=== PATIENT | female | born 1960 | race Caucasian/White ===

== ENCOUNTER 2019-12-28 10:48 | Day surgery (SDC) | payer BC, SELFPAY ==
[2019-12-25 12:20] VITALS: BMI 31.6
[2019-12-28] VITALS (9 sets, daily range): BP systolic 92–121; BP diastolic 55–77; PULSE 64–86; RESP 12–25; TEMP 35.9–36.6; O2SAT 95–98; BMI 30.4
--- NOTE | 2019-12-28 | PATH_ITS ---
[facility] Accession Number: [id number] . 01 Material submitted: . cervix - CERVICAL POLYP . 02 Diagnosis: Cervical Polyp, Excision: Consistent with endocervical polyp. No evidence of neoplasm. [facility] 01/01/2020 1046 Local . 02 Electronically signed: . Gui Pittman MD, PhD, Pathologist NPI- [id number] . 01 Gross description: . The specimen is received in formalin, labeled cervical polyp, and consists of a 3.0 x 1.4 x 1.0 cm, rodriguez-pink, smooth portion of cervix. the margin is inked blue. The specimen is serially sectioned and entirely submitted in cassettes A1-A4. ([id number]) /[facility] 12/29/2019 1738 Local . 02 Pathologist provided ICD-10: N84.1 . 02 CPT . 520989 Performed at: 01 [facility] [address] [facility], [place], [place] [id number] MD Sourav Seaman MD Phone: [phone] Performed at: 02 [facility] [place] [address] [place], [place] [id number] MD Nisha Castellanos MD Phone: [phone]
[2019-12-28] MEDS: LACTATED RINGERS 1,000 ML 100 ML IV (12:14)
--- NOTE | 2019-12-28 13:28 | PM.PREOP ---
Pre-operative Note COVID-19 COVID-19 status: Negative Result date/Date tested (Pos, Neg/Pending): 12/26/19 Interval Note History & Physical reviewed/Exam performed by Physician: Yes Changes to H&P: No
--- NOTE | 2019-12-28 13:33 | PM.GYNHP.1 ---
History of Present Illness History of Present Illness Reason for admission: other (Very large cervical polyp ) Narrative: Deep [place] is a 59 year old female who has been followed with a enlarging cervical polyp by her primary care who is requesting removal. It was too large to be removed in the office. Colposcopy, endocervical biopsy and biopsy the mass were negative on 11/23/2019. [facility] Social History household members: spouse Smoking Status: Current every day smoker alcohol intake: never Meds Home Medications and Allergies Home Medications Medication Instructions Recorded Confirmed Type No Known Home Medications 12/28/19 12/28/19 History Allergies Allergy/AdvReac Type Severity Reaction Status Date / Time acetaminophen [From Tylenol] Allergy Severe anaphylaxis, Verified 12/28/19 11:53 disorientation, dyspnea tramadol Allergy Severe Vomiting Verified 12/28/19 11:50 NSAIDS (Non-Steroidal AdvReac Unknown tinnitis Verified 12/28/19 12:27 Anti-Inflamma Review of Systems Review of Systems Narrative: Patient denies any unusual vaginal discharge or bleeding. No significant pain. However patient had significant pain with speculum placement. Patient denies any problems with urination or bowel movements. She is not sexually active. ROS: Yes All systems reviewed with the patient and are negative except as otherwise documented Exam Vital Signs (past 8 hours): - 12/28/19 12:02 Temperature 97.9 F Pulse Rate 71 Respiratory Rate 20 Blood Pressure 110/71 Pulse Oximetry 97 Oxygen Delivery Method Room Air Narrative Exam Narrative: HEENT exam within normal limits. Lungs are clear to auscultation percussion. Heart is regular rate and rhythm no S3-S4 or murmurs. Abdomen is soft, nontender with no palpable organomegaly. Normal external genitalia, vagina. Large cervical polyp at 12:00 p.m.. Uterus is not enlarged, nontender. No adnexal masses or tenderness. Extremities without edema and nontender. Assessment & Plan Assessment and plan (1) Endocervical polyp: Status: Acute (2) Preoperative exam for gynecologic surgery: Status: Acute Assessment & Plan narrative: Large endocervical polyp for surgical removal. Consent form for removal was performed with the patient on 11/23/2019. COVID-19 COVID-19 status: Negative Result date/Date tested (Pos, Neg/Pending): 12/26/19
[2019-12-28] MEDS: CEFAZOLIN 2 GM/100 ML FROZ.PIGGY IV (13:46)
[2019-12-28] MEDS: BUPIVACAINE 0.5% W/ EPI (PF) 30 ML VIAL 10 ML INJ (14:00)
--- NOTE | 2019-12-28 14:07 | SUR.OPER ---
Lithotomy on padded OR bed, head on pillow, arms secured on padded arm boards at <90 degrees abduction. Legs secured in padded yellow fins stirrups.
[2019-12-28] MEDS: FERRIC SUBSULFATE 8 GM SOLUTION 8 ML TOP (14:10)
--- NOTE | 2019-12-28 14:11 | PM.OP.1 ---
Operative Date/Time/Diagnoses Date of procedure: 12/28/19 Time of procedure: 14:11 Pre-op diagnosis: Large endocervical polyp Post-op diagnosis: same Procedure & Clinicians Procedure: LEEP removal of large endocervical polyp Same procedure as scheduled: Yes Indications: Large endocervical polyp Surgeon: Cathleen Ellis Click Yes if Unassisted: Yes Anesthesia Type: General Operative Notes Findings: Large 1 cm endocervical mass at 12:00 p.m. on the cervix Closure Type: not applicable Specimen(s): other (Endocervical mass) Estimated Blood Loss (mL): 0 Blood products transfused: none Procedure in detail: Patient was brought to the operating room she underwent general. She was placed in low stirrups. A coated bivalve speculum was placed into the vagina. The cervix was injected with 0.5% Marcaine with epinephrine. The loop set at 60 W of cutting was used to remove the entire mass. The tissue was cauterized with ball cautery to decrease the risk of bleeding. Monsel's was placed. The patient went to recovery room in good condition. Counts of instruments and sponges were correct. The tissue was sent for pathology. Complications: none Post-operative Condition: stable Disposition: same day surgery Plan for aftercare: Nothing in vagina for 2 weeks patient is to call for heavy bleeding.
[2019-12-28] MEDS: OXYCODONE IR 5 MG TABLET PO (14:37)
== END 2019-12-28 15:09 | disposition home or self-care (01) ==
PROVIDERS: PCP Registered Nurse; Referring Provider Naturopath; Visit Provider Specialist
PROC: 0UBC7ZZ Excision of Cervix, Via Natural or Artificial Opening (ICD-10-PCS; CPT 57522; principal; 2019-12-28 11:45)
DX: N84.1 Polyp of cervix uteri (principal); F17.210 Nicotine dependence, cigarettes, uncomplicated
CPT/HCPCS: 57522; A9270; J0690; J2405; J2704; J3010